=== PATIENT | male | born 1975 | race Hispanic/Latino ===

== ENCOUNTER 2021-03-22 11:50 | Emergency (ER) | payer OTHER, SELFPAY ==
[2021-03-22 11:56] VITALS: BP 128/80; PULSE 83; RESP 16; TEMP 36.6; O2SAT 100
[2021-03-22 11:59] VITALS: BP 128/80; PULSE 83; RESP 16; TEMP 36.6; O2SAT 100
--- NOTE | 2021-03-22 12:21 | ED.GENADULT ---
HPI - General Adult General Chief complaint: Back Pain/Injury Stated complaint: flank/side pain Source: patient Mode of arrival: ambulatory Limitations: no limitations History of Present Illness HPI narrative: 45 y/o male. PMH includes: None reported. Presents to [facility] with acute complaints of low back pain, intermittently radiating down posterior and bilateral buttock for the past 2-3 days. He tells me he has been recently enhancing his workout and exercise regimen, and has been doing a lot of situps and crunches at home. However, denies falls or acute back trauma. No fever, chills. No abdominal pain, N/V, Maleurogen concern. No loss of lower extremity or Bowel/Bladder sensation, control. Pain is worse with quick movement or bending. Slightly alleviated by rest. He is without additional acute complaints of illness upon exam. Related Data Allergies Allergy/AdvReac Type Severity Reaction Status Date / Time No Known Allergies Allergy Verified 03/22/21 11:58 Review of Systems Review of Systems: Narrative: CONSTITUTIONAL: Denies fever, chills, sweats. EYES: Denies visual changes, redness, discharge. ENT: Denies rhinorrhea, congestion, sore throat, otalgia. CARDIOVASCULAR: Denies chest pain, palpitations, edema. RESPIRATORY: Denies dyspnea, wheezing, cough GASTROINTESTINAL: Denies abdominal pain, nausea, vomiting, diarrhea. GENITOURINARY: Denies dysuria, hematuria, abnormal discharge SKIN: Denies rash or itching. MUSCULOSKELETAL: Positive back pain. Denies additional joint pain, or myalgia. NEUROLOGIC: Denies numbness, or focal weakness. PSYCHIATRIC: Denies anxiety or depression. All systems reviewed & are unremarkable except as noted in HPI and below Exam Narrative: Exam Narrative: GENERAL: This is a well-nourished, well-developed patient, in no apparent distress. HEAD: normocephalic, atraumatic. EYES: PERRL. Sclera clear/white. EARS: External ears normal. NOSE: External nose normal. THROAT: Mucous membranes moist, posterior pharynx clear. NECK: Neck supple, non-tender without lymphadenopathy, masses or thyromegaly. CARDIOVASCULAR: Regular rate and rhythm without murmurs, gallops, or rubs. Pulses normal, specifically lower extremities. RESPIRATORY: Clear to auscultation. Breath sounds equal bilaterally. GASTROINTESTINAL: Abdomen soft, non-tender, nondistended. Bowel sounds are active. No hepato-splenomegaly, or palpable masses. No guarding. No CVA tenderness. SKIN: warm, intact with no suspicious lesions or rash, good texture and turgor. NEURO: awake, alert, and oriented to person, place and time. No obvious focal neurologic abnormalities. Normal sensation and discrimination lower extremities. Normal muscle strength and tone. Normal deep tendon reflexes. Negative Romberg and no pronator drift. Steady gait. EXTREMITIES: Normal range of motion. No edema. No calf tenderness. SLR Test positive RT at 45 degrees. Course Vital Signs Vital signs: Vital Signs Temperature 36.6 C 03/22/21 11:56 Pulse Rate 83 03/22/21 11:56 Respiratory Rate 16 03/22/21 11:56 Blood Pressure 128/80 03/22/21 11:56 Pulse Oximetry 100 03/22/21 11:56 Temperature 36.6 C 03/22/21 11:59 Pulse Rate 83 03/22/21 11:59 Respiratory Rate 16 03/22/21 11:59 Blood Pressure 128/80 03/22/21 11:59 Pulse Oximetry 100 03/22/21 11:59 Medical Decision Making MDM Narrative Medical decision making narrative: -No neurovascular deficits. -No falls or injury, but has been engaged in increased lower back and core exercises & activity. -No saddle paraesthesia, normal strength and motor function. -Will Tx as low back strain. -Rest, soft stretching, NSAID, Flexeril, avoid quick or exacerbating movement until healed. -PCP F/U 1 week. Consider additional OP imaging w/persistence. -ER with sudden severe pain, paraesthesia, weakness, fever, abdominal pain, N/V, or additional emergent health status changes. Pt agrees.
== END 2021-03-22 12:25 | disposition home or self-care (01) ==
PROVIDERS: Emergency Provider Nurse Practitioner Adult Health
DX: S39.012A Strain of muscle, fascia and tendon of lower back, initial encounter (principal); X58.XXXA Exposure to other specified factors, initial encounter
CPT/HCPCS: 81003; 99213; G0463